=== PATIENT | male | born 1975 | race Caucasian/White ===

== ENCOUNTER 2018-05-25 09:33 | Outpatient (CLI) | payer OTHER ==
--- NOTE | 2018-05-25 12:20 | MRI ---
MRI OF LEFT KNEE PERFORMED WITHOUT CONTRAST ENHANCEMENT: History: Left knee pain since February after running. Main pain is medial. FINDINGS: The anterior as well as posterior cruciate ligaments appear intact. The medial and lateral menisci are normal in shape and appearance. Medial and lateral collateral ligaments and iliotibial band regions appear unremarkable. The patellar articular cartilage is intact. The medial and lateral patellar retinaculum and quadricep s and patellar tendons are normal. Incidental note is made of a small cyst which is near the tibiofibular joint just deep to the poplite us muscle, felt to be an incidental finding. No signs of muscle strain. IMPRESSION: No evidence of meniscal or cruciate ligament injury. POS: C
== END 2018-05-25 09:34 | disposition home or self-care (01) ==
LOC: BICMRI 09:33
PROVIDERS: ATTEND Orthopaedic Surgery
DX: M25.562 Pain in left knee (principal); S83.242A Other tear of medial meniscus, current injury, left knee, initial encounter

== ENCOUNTER 2021-08-13 15:58 | Outpatient (CLI) | payer BC | END 2021-08-13 15:59 | disposition home or self-care (01) | LOC: ULT 15:58 | PROVIDERS: ATTEND Nurse Practitioner Family | DX: M79.604 Pain in right leg (principal) ==